=== PATIENT | female | born 1970 | race Caucasian/White ===

== ENCOUNTER 2016-05-31 15:57 | Emergency (ER) ==
[2016-05-31 16:10] VITALS: BP 141/049
--- NOTE | 2016-05-31 17:11 | PROVIDER DOCUMENTATION ---
HPI-EENT General - General Chief Complaint: Toothache Stated Complaint: COUGH/TOOTHACHE Time Seen by Provider: 05/31/16 16:27 Source: patient Allergies/Adverse Reactions: Patient Allergies Allergy/AdvReac Type Severity Reaction Status Date / Time No Known Allergies Allergy Verified 05/31/16 16:10 Home Medications: Home Medication List Medication Instructions Recorded Confirmed Last Taken Type Amoxicillin [Amoxil] 875 mg PO Q12HR #20 tablet 05/31/16 Unknown Rx Naproxen 500 mg PO BID PRN PRN #20 tablet 05/31/16 Unknown Rx - History of Present Illness-EENT General Nature of Presenting Problem: 45 yo female presents to ER with c/o toothache, cough, and headache. She was seen at the end of April and given levaquin and amoxil. She did not get the levaquin filled (for c\bronchitis) and did not finish amoxil Rx. She took an amoxil today that was left over. She come to the ER multiple times for the same symptoms. EENT Location: reports: dental Quality of Pain: reports: aching Severity: reports: mild Onset/Duration: reports: 4-6 hours ago Timing: reports: still present Prearrival Treatment: Initiated prescription meds (amoxil) Associated Symptoms: reports: tooth pain Similar Symptoms Previously?: Yes Recently seen or treated by another doctor?: Yes - Throat/Dental Throat/Dental Problem Symptoms: reports: toothache Throat/Dental Problem Context: reports: dental decay Recently seen a dentist or have an appointment?: No Review of Systems - Adult - REVIEW OF SYSTEMS - ADULT Constitutional: reports: no symptoms reported Eyes: reports: no symptoms reported Ears, Nose, Mouth & Throat: reports: see HPI, mouth/dental pain Cardiovascular: reports: no symptoms reported Respiratory: reports: see HPI, cough Gastrointestinal: reports: no symptoms reported Genitourinary: reports: no symptoms reported Musculoskeletal: reports: no symptoms reported Integumentary: reports: no symptoms reported Neurological: reports: see HPI, headache/migraines Psychiatric: reports: no symptoms reported Endocrine: reports: no symptoms reported Hematologic/Lymphatic: reports: no symptoms reported Allergic/Immunologic: reports: no symptoms reported All Other Systems: Reviewed and Negative Past History - Adult - PAST MEDICAL HISTORY-ADULT Review of Records: reports: Old Records Reviewed, Nursing Assessment Review, Medications Reviewed, Social history reviewed & non-contributory. Major Childhood Illnesses: reports: denies history Cardiovascular: reports: denies history Respiratory: reports: asthma Gastrointestinal: reports: GERD Obstetrical/Gynecological: reports: denies history Genitourinary: reports: denies history Musculoskeletal: reports: denies history Neurological: reports: denies history Psychiatric: reports: denies history Endocrine/Immune: reports: denies history Other Conditions: reports: MRSA - PRIOR SURGERIES/PROCEDURES Surgical/Procedure History: reports: none - PRIOR HOSPITALIZATIONS Prior Hospitalizations: reports: none - IMMUNIZATION STATUS Childhood Immunizations: See Nurse Assessment Flu Vaccine: See Nurse Assessment - FAMILY HISTORY Family History: reviewed, not pertinent - SOCIAL HISTORY Smoking: denies, non-smoker Substance Use: denies Alcohol Use Frequency: occasionally Living Situation: family Physical Exam- EENT - Physical Exam EENT Initial Vital Signs Reviewed: Yes General Appearance: appears well, alert, no apparent distress, other (disheveld ; body odor) Eye Exam: bilateral eye: normal inspection, PERRL Nasal Exam: normal inspection. negative: sinus tenderness Throat Exam: pharynx normal, dental tenderness (left upper molar), other ( widespread poor dentition) Neck: full range of motion, supple Respiratory: lungs clear, normal breath sounds, no respiratory distress Cardiovascular: normal peripheral pulses Extremity: normal gait Integumentary: normal color, normal turgor, warm/dry Neurologic: grossly normal Psych/Mental Status: normal mood/affect, normal thought content, normal thought process, oriented x 3 Progress - PLAN OF CARE/RESULTS Progress/Plan/Lab Results: 1700-Discussed dx/tx/discharge and follow up with dentist with patient and friend; they verbalized understanding. I do not feel that she needs levaquin for bronchitis; bilateral BS clear in all lung carroll. Vital Signs - 24 hr 05/31/16 05/31/16 16:07 17:22 Temperature 98.7 F Pulse Rate 81 83 Respiratory 19 19 Rate Blood Pressure 141/049 O2 Sat by Pulse 99 Oximetry Departure - Departure Time of Disposition Order: 17:12 DIAGNOSIS: Toothache, Cough Headache Qualifiers: Headache type: other headache syndrome Qualified Code(s): G44.89 - Other headache syndrome Disposition: HOME 01 Certified Medical Emergency: Emergent Condition: Good Additional Instructions: Follow up with a dentist. Warm heat to left jaw area. Take medications as prescribed. ED Follow Up Instructions: You have been treated by a care provider in the Emergency Department. These instructions are being provided to you so you can have an understanding of how to care for yourself upon discharge. Upon discharge from the Emergency Department, you are responsible for making arrangements for follow-up care by a physician of your choice. Take all prescribed medications as directed. Return to the Emergency Department immediately for any new or worsening symptoms. You may call the Physician Referral phone number at [phone] to obtain a list of Physicians who are taking new patients. Prescriptions: Amoxicillin [Amoxil] 875 mg PO Q12HR #20 tablet Naproxen 500 mg PO BID PRN PRN #20 tablet PRN Reason: Pain Referrals: Franklin Diamond MD [STAFF PHYSICIAN] - None,PCP [Primary Care Provider] - Instructions: Amoxicillin capsules or tablets, Naproxen Sodium oral tablet, extended-release, Dental Pain, [id number], Migraine Headache, [id number] Attestation - Physician/ FRANCISCA Attestation Patient care was provided by Advanced Practice Provider:: Yes Advanced Practice Provider:: Vivian Vega Advanced Practice Provider documentation review:: The Mid-level provider documentation, treatment plan and medical decision making was reviewed by the physician who agrees with all treatment and medical decision making by the P.
== END 2016-05-31 17:22 | disposition home or self-care (01) ==
LOC: P.ED 15:57
DX: K08.89 Other specified disorders of teeth and supporting structures (principal); R05 Cough; G44.89 Other headache syndrome; K02.9 Dental caries, unspecified; Z86.14 Personal history of Methicillin resistant Staphylococcus aureus infection
CPT/HCPCS: 99282